=== PATIENT | female | born 1935 | race Two or more races ===

== ENCOUNTER 2024-09-20 03:46 | Inpatient (IN) | payer MEDICARE, OTHER ==
[~2024-09-20] VITALS: Ht 157.5 cm; Wt 69.9 kg
[~2024-09-20 03:46] MED LIST: ACET-868 PO; ATOR20TA PO; ENAL-78 PO; GABA-532 PO; METO25TA6 PO; RIVA10TA PO; [UNRECOGNIZED DRUG - OTHER]
[2024-09-20 04:49] LABS: BASOPHILS # (AUTO) 0.1 K/uL (0.0-0.2); BASOPHILS % (AUTO) 0.9 % (0.0-2.0); EOSINOPHILS % (AUTO) 0.3 % (0.0-6.0); HEMATOCRIT 35 % (33-45); LYMPHOCYTES # (AUTO) 0.8 K/uL (0.8-4.8); LYMPHOCYTES % (AUTO) 13.6 % (20.0-44.0); MEAN CORPUSCULAR HEMOGLOBIN 24 PG (26.0-33.0); MEAN CORPUSCULAR HGB CONC 31 g/dl (31.0-36.0); MEAN CORPUSCULAR VOLUME 78 fL (82-100); MONOCYTES # (AUTO) 0.6 K/uL (0.1-1.30); MONOCYTES % (AUTO) 10.1 % (2.0-12.0); NEUTROPHILS # (AUTO) 4.4 K/uL (1.8-8.9); NEUTROPHILS % (AUTO) 75.1 % (43.0-81.0); PLATELET COUNT (AUTO) 218 K/uL (150-450); RED BLOOD CELL COUNT(AUTO) 4.52 MIL/uL (4.0-5.2); RED CELL DISTRIBUTION WIDTH 16.4 % (11.5-15.0); WHITE BLOOD COUNT (AUTO) 5.9 K/uL (4.3-11.0)
[2024-09-20 05:02] LABS: SERUM AMMONIA 13 umol/L (11-32)
[2024-09-20 05:13] LABS: CALCIUM, SERUM 9.4 mg/dL (8.5-10.1); CARBON DIOXIDE 26 mmol/L (21-32); CHLORIDE 100 mmol/L (98-107); CREATININE 1.7 mg/dL (0.6-1.3); GLUCOSE 121 mg/dL (74-106); POTASSIUM 5.2 mmol/L (3.5-5.1); SODIUM SERUM 133 mmol/L (136-145); UREA NITROGEN, BLOOD 58 mg/dL (7-18)
[2024-09-20 05:20] LABS: ALANINE AMINOTRANSFERASE 52 U/L (12-78); ALBUMIN 3.6 g/dL (3.4-5.0); ALKALINE PHOSPHATASE 100 U/L (46-116); ASPARTATE AMINOTRANSFERASE 61 U/L (15-37); LIPASE 39 U/L (16-77); NT-PRO BNP 6058 pg/mL (0-125); TOTAL PROTEIN, SERUM 8.2 g/dL (6.4-8.2)
[2024-09-20] MEDS ORDERED: Z GUARD REMEDY 4 OZ OINT TP PRN (06:00)
[2024-09-20] MEDS ORDERED: MAGNESIUM HYDROXIDE 30 ML UDC PO PRN (06:00)
[2024-09-20] MEDS ORDERED: ENOXAPARIN SODIUM 30 MG/0.3 ML DISP.SYRIN SQ SCH ×2 (07:00→07:11)
[2024-09-20] MEDS ORDERED: DIPH-1062 PO (08:05)
[2024-09-20] MEDS ORDERED: SPIR25TA6 PO (08:05)
[2024-09-20] MEDS ORDERED: ERGO500093 PO (08:05)
[2024-09-20] MEDS ORDERED: SENN-261 PO (08:05)
[2024-09-20] MEDS ORDERED: RIVA15TA PO (08:05)
[2024-09-20] MEDS ORDERED: METO25TA4 PO (08:05)
[2024-09-20] MEDS ORDERED: DOCU100C36 PO (08:05)
[2024-09-20] MEDS ORDERED: DAPA10TA PO (08:05)
[2024-09-20] MEDS ORDERED: ATOR40TA PO (08:05)
[2024-09-20] MEDS ORDERED: DICL100G34 TP (08:05)
[2024-09-20 08:21] LABS: BILIRUBIN,DIRECT 0.4 mg/dL (0.0-0.2)
[2024-09-20 08:36] LABS: LACTIC ACID REFLEX 2.3 mmol/L (0.4-1.9)
[2024-09-20] MEDS: PANTOPRAZOLE 40 MG VIAL IV SCH (11:40)
[2024-09-20 13:30] VITALS: BP 118/64; TEMP 97.5; O2SAT 95
[2024-09-20] MEDS: ONDANSETRON HCL/PF 4 MG/2 ML VIAL IVP PRN (13:56)
[2024-09-20] MEDS: FUROSEMIDE 20 MG/2 ML VIAL IV SCH (14:54)
[2024-09-20] MEDS: ENOXAPARIN SODIUM 30 MG/0.3 ML DISP.SYRIN SQ SCH (14:56)
[2024-09-20 15:37] LABS: CALCIUM, SERUM 9.2 mg/dL (8.5-10.1); CREATININE 1.7 mg/dL (0.6-1.3); POTASSIUM 4.4 mmol/L (3.5-5.1)
[2024-09-20 16:00] VITALS: BP 107/78; TEMP 97.7; O2SAT 94
[2024-09-20] MEDS ORDERED: SENNOSIDES 8.6 MG TABLET PO PRN (18:30)
[2024-09-20 20:00] VITALS: BP 109/77; TEMP 97.8; O2SAT 98
[2024-09-20] MEDS: CEFTRIAXONE 1 G in IV D5W 50 ML IV SCH (20:57)
[2024-09-20] MEDS: AZITHROMYCIN 500 MG in IV D5W 250 ML IV SCH (21:45)
[2024-09-20] MEDS: ATORVASTATIN 40 MG TABLET PO SCH (21:54)
[2024-09-20] MEDS: MAG HYDROX/AL HYDROX/SIMETH 30 ML UDC PO PRN (22:59)
[2024-09-21] VITALS: BP_SYST 107; BP_SYST 137; BP_SYST 90; BP_DIAS 60; BP_DIAS 74; BP_DIAS 77; TEMP 97.8; TEMP 98.1; O2SAT 92; O2SAT 98; O2SAT 99
[2024-09-21 04:00] VITALS: BP_SYST 100; BP_DIAS 69; BP_DIAS 79; TEMP 98.2; O2SAT 93
[2024-09-21 07:23] LABS: BASOPHILS % (AUTO) 0.8 % (0.0-2.0); EOSINOPHILS # (AUTO) 0.1 K/uL (0.0-0.7); EOSINOPHILS % (AUTO) 1.2 % (0.0-6.0); HEMATOCRIT 31 % (33-45); HEMOGLOBIN 9.8 g/dL (11.5-14.8); LYMPHOCYTES % (AUTO) 16.6 % (20.0-44.0); MEAN CORPUSCULAR HEMOGLOBIN 24 PG (26.0-33.0); MEAN CORPUSCULAR HGB CONC 31 g/dl (31.0-36.0); MEAN CORPUSCULAR VOLUME 76 fL (82-100); MONOCYTES # (AUTO) 0.8 K/uL (0.1-1.30); MONOCYTES % (AUTO) 13.3 % (2.0-12.0); NEUTROPHILS # (AUTO) 4.2 K/uL (1.8-8.9); NEUTROPHILS % (AUTO) 68.1 % (43.0-81.0); PLATELET COUNT (AUTO) 189 K/uL (150-450); RED BLOOD CELL COUNT(AUTO) 4.09 MIL/uL (4.0-5.2); RED CELL DISTRIBUTION WIDTH 15.8 % (11.5-15.0); WHITE BLOOD COUNT (AUTO) 6.2 K/uL (4.3-11.0)
[2024-09-21 07:30] VITALS: BP 116/59; TEMP 98.4; O2SAT 93
[2024-09-21 07:44] LABS: BILIRUBIN,TOTAL 0.7 mg/dL (0.2-1.0); CALCIUM, SERUM 8.9 mg/dL (8.5-10.1); MAGNESIUM 2.4 mg/dL (1.8-2.4); PHOSPHORUS 4.3 mg/dL (2.5-4.9); POTASSIUM 4.5 mmol/L (3.5-5.1); TOTAL PROTEIN, SERUM 6.9 g/dL (6.4-8.2)
[2024-09-21] MEDS: DAPAGLIFLOZIN PROPANEDIOL 10 MG TABLET PO SCH (08:39)
[2024-09-21] MEDS: PANTOPRAZOLE 40 MG TABLET.DR PO SCH (08:39)
[2024-09-21] MEDS: METOPROLOL SUCCINATE 25 MG TAB.SR.24H PO SCH (08:42)
[2024-09-21] MEDS: DOCUSATE SODIUM 100 MG CAPSULE PO SCH (08:44)
[2024-09-21] MEDS: RIVAROXABAN 15 MG TABLET PO SCH (12:15)
[2024-09-21 16:00] VITALS: BP 94/61; TEMP 98.2; O2SAT 94
[2024-09-21 20:49] VITALS: BP 100/59; TEMP 97.5; O2SAT 94
[2024-09-21 21:58] LABS: CREATININE, URINE 90.3 MG/DL (30.0-125.0); URINE TOTAL PROTEIN 22.8 mg/dL (0-11.9)
[2024-09-21 22:30] VITALS: BP 109/65; TEMP 98; O2SAT 97
[2024-09-21 23:13] LABS: APPEARANCE,URINE CLEAR (CLEAR); BILIRUBIN,URINE NEGATIVE (NEGATIVE); BLOOD, URINE NEGATIVE Ery/uL (NEGATIVE); COLOR,URINE YELLOW (YELLOW); KETONES,URINE NEGATIVE (NEGATIVE); LEUKOCYTE ESTERASE ,URINE TRACE (NEGATIVE); NITRITE, URINE NEGATIVE (NEGATIVE); PH,URINE 5.5 (5.0-8.0); PROTEIN,URINE NEGATIVE (NEGATIVE); UGLUCOSE NEGATIVE (NEGATIVE); UROBILINOGEN,URINE 0.2 EU/dL (0.2)
[2024-09-21 23:26] LABS: ADD URINE CULTURE YES; BACTERIA,URINE Few /HPF (None Seen); RBC,URINE 0-2 /HPF (0-2)
[2024-09-21 23:27] LABS: SQUAMOUS EPITHELIAL CELL,UR Few /HPF (None Seen)
[2024-09-21 23:45] LABS: EOSINOPHIL,URINE None Seen
[2024-09-22 04:22] VITALS: BP 103/70; TEMP 97.3; O2SAT 94
[2024-09-22 06:10] LABS: PTH, INTACT 68 pg/mL (15-65)
[2024-09-22 06:54] LABS: BASOPHILS # (AUTO) 0.1 K/uL (0.0-0.2); BASOPHILS % (AUTO) 0.9 % (0.0-2.0); EOSINOPHILS # (AUTO) 0.3 K/uL (0.0-0.7); HEMATOCRIT 32 % (33-45); HEMOGLOBIN 9.8 g/dL (11.5-14.8); LYMPHOCYTES # (AUTO) 1.6 K/uL (0.8-4.8); LYMPHOCYTES % (AUTO) 22.7 % (20.0-44.0); MEAN CORPUSCULAR HEMOGLOBIN 24 PG (26.0-33.0); MEAN CORPUSCULAR HGB CONC 31 g/dl (31.0-36.0); MEAN CORPUSCULAR VOLUME 77 fL (82-100); MONOCYTES % (AUTO) 15.2 % (2.0-12.0); NEUTROPHILS # (AUTO) 3.9 K/uL (1.8-8.9); NEUTROPHILS % (AUTO) 57.2 % (43.0-81.0); PLATELET COUNT (AUTO) 188 K/uL (150-450); RED BLOOD CELL COUNT(AUTO) 4.12 MIL/uL (4.0-5.2); RED CELL DISTRIBUTION WIDTH 15.9 % (11.5-15.0); WHITE BLOOD COUNT (AUTO) 6.9 K/uL (4.3-11.0)
[2024-09-22 07:01] LABS: CALCIUM, SERUM 8.9 mg/dL (8.5-10.1); CREATININE 2.1 mg/dL (0.6-1.3)
[2024-09-22 07:30] VITALS: BP 105/69; TEMP 97.1; O2SAT 94
[2024-09-22 15:06] LABS: *SPE ALBUMIN 3.1 g/dL (2.9-4.4); *SPE ALPHA-1-GLOBULIN 0.3 g/dL (0.0-0.4); *SPE ALPHA-2-GLOBULIN 0.7 g/dL (0.4-1.0); *SPE BETA GLOBULIN 1.2 g/dL (0.7-1.3); *SPE GLOBULIN, TOTAL 3.2 g/dL (2.2-3.9); *SPE M-SPIKE Not Observed g/dL (Not Observed); *SPE PROTEIN TOTAL 6.3 g/dL (6.0-8.5); *SPEGAMMA GLOBULIN 1.1 g/dL (0.4-1.8)
[2024-09-22 16:00] VITALS: BP 101/48; TEMP 98.8; O2SAT 93
[2024-09-22 20:00] VITALS: BP 112/70; TEMP 98.1; O2SAT 92
[2024-09-23] MEDS: ACETAMINOPHEN 325 MG TABLET PO PRN (03:50)
[2024-09-23 07:22] LABS: BASOPHILS # (AUTO) 0.1 K/uL (0.0-0.2); BASOPHILS % (AUTO) 0.9 % (0.0-2.0); EOSINOPHILS # (AUTO) 0.2 K/uL (0.0-0.7); EOSINOPHILS % (AUTO) 3.9 % (0.0-6.0); HEMATOCRIT 30 % (33-45); HEMOGLOBIN 9.5 g/dL (11.5-14.8); LYMPHOCYTES # (AUTO) 1.3 K/uL (0.8-4.8); MEAN CORPUSCULAR HEMOGLOBIN 24 PG (26.0-33.0); MEAN CORPUSCULAR HGB CONC 32 g/dl (31.0-36.0); MEAN CORPUSCULAR VOLUME 76 fL (82-100); MONOCYTES % (AUTO) 16.3 % (2.0-12.0); NEUTROPHILS # (AUTO) 3.7 K/uL (1.8-8.9); NEUTROPHILS % (AUTO) 58.9 % (43.0-81.0); PLATELET COUNT (AUTO) 190 K/uL (150-450); RED BLOOD CELL COUNT(AUTO) 3.98 MIL/uL (4.0-5.2); RED CELL DISTRIBUTION WIDTH 15.6 % (11.5-15.0); WHITE BLOOD COUNT (AUTO) 6.2 K/uL (4.3-11.0)
[2024-09-23 07:38] LABS: CALCIUM, SERUM 8.8 mg/dL (8.5-10.1); CREATININE 1.8 mg/dL (0.6-1.3); POTASSIUM 4.9 mmol/L (3.5-5.1)
[2024-09-23 08:00] VITALS: BP 114/74; TEMP 97.5; O2SAT 96
[2024-09-23 09:35] VITALS: BP 114/74
[2024-09-23] MEDS ORDERED: PANT20TA2 PO (09:51)
[2024-09-23] MEDS ORDERED: POLY17PO4 PO (09:51)
[2024-09-23] MEDS ORDERED: SPIR25TA6 PO (09:51)
[2024-09-23] MEDS ORDERED: SPIR50TA5 PO (13:48)
[2024-09-25] MEDS ORDERED: ERGOCALCIFEROL (VITAMIN D 2) 50,000 UNIT CAPSULE PO SCH (10:20)
== END 2024-09-23 13:20 | disposition home or self-care (01) | DRG 280 ==
LOC: ER 03:48 → TRANSITION 05:51 → TELE 09:46 → MED 09-22 14:29
PROVIDERS: ADMIT Nurse Practitioner Acute Care; ATTEND Nurse Practitioner Acute Care
DX: I13.0 Hypertensive heart and chronic kidney disease with heart failure and stage 1 through stage 4 chronic kidney disease, or unspecified chronic kidney disease (principal); I50.23 Acute on chronic systolic (congestive) heart failure; I21.A1 Myocardial infarction type 2; J15.69 Pneumonia due to other Gram-negative bacteria; N17.0 Acute kidney failure with tubular necrosis; E87.20 Acidosis, unspecified; E87.1 Hypo-osmolality and hyponatremia; K43.9 Ventral hernia without obstruction or gangrene; E87.5 Hyperkalemia; D64.9 Anemia, unspecified; E21.3 Hyperparathyroidism, unspecified; E78.5 Hyperlipidemia, unspecified; E86.1 Hypovolemia; G47.00 Insomnia, unspecified; I48.91 Unspecified atrial fibrillation; Z90.49 Acquired absence of other specified parts of digestive tract; Z95.0 Presence of cardiac pacemaker; Z95.2 Presence of prosthetic heart valve; R53.1 Weakness; N18.9 Chronic kidney disease, unspecified; I25.10 Atherosclerotic heart disease of native coronary artery without angina pectoris; M89.8X9 Other specified disorders of bone, unspecified site
CPT/HCPCS: 36415; 70450-TC; 71045-TC; 76770-TC; 80048-TC; 80053-TC; 81001; 82140-TC; 82248-TC; 82550-TC; 82570-TC; 83605-TC; 83690-TC; 83735-TC; 83880; 83970; 84100-TC; 84155; 84165; 84300-TC; 84484-TC; 85025-TC; 87040-TC; 87086-TC; 93307-TC; 93970-TC; A4223; G0378; J0456; J0696; J1650; J1940; J2405; J2470; J7050; J7060